=== PATIENT | female | born 1960 | race Caucasian/White ===

== ENCOUNTER 2018-07-20 18:31 | Observation (INO) | payer OTHER ==
[~2018-07-20] VITALS: Ht 172.7 cm; Wt 87.6 kg
[~2018-07-20 18:31] MED LIST: CYCL10 PO; Catapres0.1 MG PO; HYDACE5 PO; IBUP600 PO; NAPR500 PO; ONDA4ODT MM; OXYC30 PO; OXYC30ER PO; PRED20 PO; TRAM50 PO
[2018-07-20 19:52] LABS: BASOPHILS ABSOLUTE AUTO 0.05 K/mm3 (0.00-0.23); BASOPHILS PERCENT AUTO 1 % (0-2); EOSINOPHILS PERCENT AUTO 0 % (0-6); Hematocrit 39.1 % (33.0-51.0); Hemoglobin 12.4 g/dL (11.5-16.0); IMMATURE GRAN ABSOLUTE AUTO 0.02 K/mm3 (0.00-0.10); IMMATURE GRAN PERCENT AUTO 0 % (0-1); LYMPHOCYTES ABSOLUTE AUTO 1.91 K/mm3 (0.84-5.20); LYMPHOCYTES PERCENT AUTO 21 % (21-46); MONOCYTES ABSOLUTE AUTO 0.41 K/mm3 (0.16-1.47); MONOCYTES PERCENT AUTO 5 % (4-13); Mean Corpuscular HGB 28.1 pg (26.0-34.0); Mean Corpuscular HGB Conc 31.7 g/dL (31.5-36.5); Mean Corpuscular Volume 89 fL (80-100); Mean Platelet Volume 9.5 fL (9.1-12.4); NEUTROPHILS ABSOLUTE AUTO 6.65 K/mm3 (1.96-9.15); NEUTROPHILS PERCENT AUTO 74 % (41-73); Platelet Count 267 K/mm3 (150-400); RDW Coefficient Variation 13.2 % (11.7-14.2); Red Blood Cell Count 4.41 M/mm3 (3.80-5.20); White Blood Cell Count 9.04 K/mm3 (4.00-11.30)
[2018-07-20 20:15] LABS: Alanine Aminotransfer (ALT/SGP 144 U/L (12-78); Albumin, Blood 3.9 g/dL (3.4-5.0); Albumin/Globulin Ratio 1.1 (0.8-1.8); Alk Phos 77 U/L (50-136); Anion Gap 12 mmol/L (6-16); Aspartate Aminotrans (AST/SGOT 226 U/L (12-37); Bilirubin, Total 0.2 mg/dL (0.1-1.0); Blood Urea Nitrogen 15 mg/dL (8-24); Bun/Creatinine Ratio 15.9 (12.0-20.0); CO2, Blood 22 mmol/L (21-32); Calcium, Blood 8.1 mg/dL (8.5-10.1); Chloride, Blood 103 mmol/L (98-108); Creatinine, Blood 0.94 mg/dL (0.40-1.00); Ethanol (Alcohol), Blood, Med 124 mg/dL; Globulin, Blood 3.7 g/dL (2.2-4.0); Glomerular Filtration Rate >60 (60-); Glucose, Blood 132 mg/dL (70-99); Potassium, Blood 3.7 mmol/L (3.5-5.5); Salicylate <1.7 mg/dL (2.8-20.0); Sodium, Blood 137 mmol/L (136-145); Total Protein, Blood 7.6 g/dL (6.4-8.2)
[2018-07-20 20:20] LABS: Acetaminophen, Random <2.0 ug/mL (10.0-30.0)
[2018-07-21 03:03] LABS: Source, Urine Voided
[2018-07-21 03:05] LABS: Bilirubin, Urine Neg (Neg); Blood, Urine Neg (Neg); Glucose Qualitative, Urine Neg (Neg); Ketones, Urine 1+ (Neg); Leukocyte Esterase, Urine 1+ (Neg); Nitrite, Urine Neg (Neg); Protein, Urine 1+ (Neg); Urobilinogen, Urine NORM (Normal)
[2018-07-21 03:11] LABS: Appearance, Urine Clear (Clear); Bacteria Mod /hpf; Color, Urine Yellow (P-Yellow); Red Blood Cells, Urine 0-2 /hpf (0-2); Squamous Epithelial Cells Few /hpf (Few)
[2018-07-21 03:12] LABS: Mucus Mod ({null, 0-Heavy})
[2018-07-21 03:18] LABS: U Amphetamine Screen Not Detected; U Barbituate Screen Not Detected; U Benzodiazapine Screen DETECTED; U Buprenorphine Screen Not Detected; U Cannabinoids Screen Not Detected; U Cocaine Screen Not Detected; U Methadone Screen Not Detected; U Methamphetamine Screen DETECTED; U Opiates Screen DETECTED; U Oxycodone Screen Not Detected; U Phencyclidine Screen Not Detected; U Propoxyphene Screen Not Detected
--- NOTE | 2018-07-21 07:38 | NUR ---
AWAKE AND ALERT. VERY LUCID. TALKING WITH DR DARNELL. KRISTIN ELLIOTT CONSULTED. LUNGS DECREASED IN THE LOWER LOBES SUNNI. ON 2L NC WITH SPO2 AT 93%. NO EXT SWELLING. WOULD LIKE US TO CALL HER COURT ASSISTANT BECAUSE SHE IS DUE IN COURT TODAY. WE WILL CALL AFTER [phone]. SHE WOULD ALSO LIKE TO TALK WITH HER WHO IS STAYING HOME TODAY. NS AT 75ML/HOUR INTO RIGHT HAND.
[2018-07-21] MEDS ORDERED: ARIP15 PO (07:49)
--- NOTE | 2018-07-21 07:50 | NUR ---
[id number]: ADMIT FROM ER, AWAKE, RESPONSIVE, COOPERATIVE. ABLE TO MOVE FROM STRETCHER TO BED. TSAN. DENIES PAIN OR NAUSEA. IV NS STARTED AT75CC/HR. SOMNOLENT BUT ABLE TO ASSIST W/ ADMISSION HISTORY. DID REFUSE TO SIGN RELEASE OF INFORMATION FORM, BLOOD TRANSFUSION CONSENT. ORIENTED TO ROOM, BED CONTROLS, RESTRICTIONS. CONTINUOUS OBSERVATION EXPLAINED. ALLOWED KLEENEX, CALL LIGHT. NO SWALLOWING DIFFICULTIES, DRINKING WATER IN SMALL AMOUNTS. BREATH SOUNDS W/SCATTERED RHONCHI, PRODUCTIVE COUGH, BROWN STREAKED SPUTUM, DIMINISHED AMOUNT IN AM. AFEBRILE. NO APNEA. ASSISTED TO BSC, SOME UNSTEADINESS UPON RISING, GAIT STEADY. PT INCREASINGLY VOCAL ABOUT DESIRE TO LEAVE HOSPITAL IN ORDER TO ATTEND COURT AT 8 AM. REITERATED 2 MD HOLD ORDER. PT ARGUEMENTATIVE BUT NOT BELIGERENT. STATUS REPORT CALLED TO DR BASS, ATIVAN 0.5MG GIVEN IV, PT DOZING. REFUSED LABS IN AM.
[2018-07-21] MEDS ORDERED: HYDPAM50 PO (07:51)
[2018-07-21] MEDS ORDERED: LORA.5 PO (07:52)
[2018-07-21] MEDS ORDERED: VENL150ER PO (07:54)
[2018-07-21] MEDS ORDERED: VENL75ER PO (07:55)
--- NOTE | 2018-07-21 09:48 | NUR ---
KRISTIN ELLIOTT IN TO VISIT WITH PATIENT. PATIENT DENIES ANY SUICIDAL IDEATION
--- NOTE | 2018-07-21 10:40 | NUR ---
KRISTIN ELLIOTT TALKED WITH DR DARNELL AND RECOMMENDED THAT HE RELEASE THE 2 MD HOLD. POSS DISCHARGE THIS AFTERNOON. IV FLUID FINISHED AND STOPPED.
--- NOTE | 2018-07-21 10:56 | NUR ---
O2 DCED. FLUTTER VALVE STARTED WITH PATIENT TO ENCOURAGE HER TO COUGH. WILL BRUSH HER TEETH AND WASH UP SOON. WHEN SHE IS ASLEEP HER SPO2 DROPS TO 88%, BUT USING FLUTTER VALVE SHE IS AT 96%.
--- NOTE | 2018-07-21 14:00 | NUR ---
IV DCED. PATIENT DRESSED SELF. TAKEN BY WHEELCHAIR TO CAR. AT BEDSIDE.
== END 2018-07-21 14:25 | disposition home or self-care (01) ==
LOC: ER 18:31 → ICUW 18:32 → ER 20:13 → ICUW 20:13
PROVIDERS: Emergency Medicine; ADMIT Internal Medicine
DX: T40.2X1A Poisoning by other opioids, accidental (unintentional), initial encounter (principal); F10.10 Alcohol abuse, uncomplicated; F32.89 Other specified depressive episodes; R09.02 Hypoxemia; R09.2 Respiratory arrest; M51.36 Other intervertebral disc degeneration, lumbar region; M79.7 Fibromyalgia; M19.90 Unspecified osteoarthritis, unspecified site; Z79.899 Other long term (current) drug therapy
CPT/HCPCS: 36415; 71045; 80053; 81001; 81025; 84443; 85025; 87086; 93005; 93010; 94640; 96372; 96374; 96375; 99285-25; G0480; J1650; J2060; J2310; J2930; J7030; Q3014